=== PATIENT | female | born 1990 | race Hispanic/Latino ===

== ENCOUNTER 2018-12-11 18:49 | Inpatient (IN) | payer MEDICAID ==
[~2018-12-11] VITALS: Ht 165.1 cm; Wt 82.6 kg
[2018-12-11] MEDS ORDERED: LACTATED RINGERS 1000ML 1,000 ML IV PRN (19:12)
[2018-12-11] MEDS ORDERED: OXYTOCIN-LR 20 UNITS/1000 ML 1,000 ML IV SCH (19:15)
[2018-12-11 19:47] LABS: APPEARANCE,URINE Clear (CLEAR); BILIRUBIN,URINE Negative (NEGATIVE); COLOR,URINE Yellow (YELLOW); GLUCOSE, URINE (UA) Negative (NEGATIVE); KETONES,URINE Negative (NEGATIVE); LEUKOCYTE ESTERASE ,URINE Small (NEGATIVE); NITRATE,URINE Negative (NEGATIVE); OCCULT BLOOD,URINE Negative (NEGATIVE); PH,URINE 6.5 (5.0-8.0); PROTEIN,URINE Negative (NEGATIVE)
[2018-12-11 20:36] LABS: BACTERIA,URINE Moderate /HPF (None Seen); SQUAMOUS EPITHELIAL CELL,UR 30-50 /HPF (0-2); YEAST,URINE BUDDING Moderate /HPF (None Seen)
[2018-12-11 20:37] LABS: RBC,URINE 0-1 /HPF (0-1)
[2018-12-11] MEDS ORDERED: PREN1TAB80 PO (21:00)
[2018-12-11 21:01] VITALS: BP 114/73
[2018-12-11 22:03] LABS: HEMATOCRIT 36.2 % (36-48); MEAN CORPUSCULAR HEMOGLOBIN 32.6 pg (27.0-33.0); MEAN CORPUSCULAR HGB CONC 35.1 g/dL (32.0-36.0); PLATELET COUNT (AUTO) 143 K/uL (130-400); RED BLOOD CELL COUNT(AUTO) 3.89 MIL/uL (4.00-5.50); RED CELL DISTRIBUTION WIDTH 13.6 % (11.0-15.5)
[2018-12-12] MEDS: OXYTOCIN-LR 20 UNITS/1000 ML 1,000 ML IV SCH ×2 (05:30→09:55)
[2018-12-12] MEDS ORDERED: MEPERIDINE-PF 50 MG/ML SYG ONE (07:36)
[2018-12-12] MEDS ORDERED: PROMETHAZINE HCL 25 MG/ML 1ML AMPULE IM SCH (07:45)
[2018-12-12] MEDS ORDERED: MEPERIDINE-PF 50 MG/ML SYG IVP SCH (07:45)
[2018-12-12] MEDS ORDERED: MEASLES/MUMPS/RUBELLA VACCINE, LIVE 0.5 ML/VIAL SQ PRN (09:15)
[2018-12-12] MEDS ORDERED: ACETAMINOPHEN-CODEINE 300/30MG TAB PO PRN (09:15)
[2018-12-12] MEDS ORDERED: ACETAMINOPHEN 325 MG TAB PO PRN (09:15)
[2018-12-12] MEDS ORDERED: DIPH,PERTUSS(ACELL),TET VAC/PF 0.5 ML VIAL IM PRN (09:15)
[2018-12-12] MEDS ORDERED: LANOLIN 30GM OINTMENT TP PRN (09:15)
[2018-12-12] MEDS ORDERED: BENZOCAINE/LANOLIN/ALOE VERA 60 ML AEROSOL TP PRN (09:15)
[2018-12-12] MEDS ORDERED: OXYTOCIN-LR 20 UNITS/1000 ML 1,000 ML IV SCH (09:15)
[2018-12-12] MEDS ORDERED: WITCH HAZEL 1 PAD TP PRN (09:15)
[2018-12-12 11:22] VITALS: BP 116/70
[2018-12-12 16:32] VITALS: BP 122/69
[2018-12-12 19:16] VITALS: BP 104/72
[2018-12-12] MEDS: DOCUSATE SODIUM 100 MG CAP PO SCH (20:43)
[2018-12-12] MEDS: IBUPROFEN 600 MG TABLET PO PRN (20:46)
[2018-12-12 23:16] VITALS: BP 99/52
[2018-12-13 03:01] VITALS: BP 103/54
[2018-12-13] MEDS: IBUPROFEN 600 MG TABLET PO PRN ×3 (04:06→19:39)
[2018-12-13 05:38] LABS: HEMATOCRIT 31.1 % (36-48); MEAN CORPUSCULAR HGB CONC 34.9 g/dL (32.0-36.0); MEAN CORPUSCULAR VOLUME 94.4 fL (79-99); PLATELET COUNT (AUTO) 134 K/uL (130-400); RED CELL DISTRIBUTION WIDTH 13.5 % (11.0-15.5); WHITE BLOOD COUNT (AUTO) 12.7 K/uL (4.8-10.8)
[2018-12-13 07:52] VITALS: BP 108/72
[2018-12-13] MEDS: DOCUSATE SODIUM 100 MG CAP PO SCH ×2 (09:35→19:38)
[2018-12-13 10:12] LABS: HEPATITIS Bs ANTIGEN SCREEN P Negative (Negative)
[2018-12-13 11:51] VITALS: BP 94/58
--- NOTE | 2018-12-13 12:57 | NUR ---
+UDS 06/26/18 Sw met with pt who lives with her parents ( mom -Chloe michael [phone]), pt's BF Jefferson Bermudez (21), 02/14/97,and her 8yro daughter from a previous relationship. This is first child for couple, son, Jefferson Bermudez. Pt reports she has Medicaid, WIC, Food Stamp and child support assistance. BF works at [employer], pt unemployed. Couple has basic items for baby and a car seat. Dr Jordan at [facility] will follow baby at ri. Pt reports good family support. Pt admits to recreational use of THC prior to confirmation of , denies any use after confirmation. States she last used right before she found out she was and was dirty at first OB appt. No UDS done at delivery on pt or baby. Pt denies need for substance abuse resources, referral or intervention at this time. Pt denies any hx of abuse, domestic violence, mental health, issues. pt has hx with CPS and or arrest. NATALIE verified with local CPS office, last CPS case was in 2010.
[2018-12-13 16:10] VITALS: BP 120/59
[2018-12-13 19:14] VITALS: BP 107/78
[2018-12-13 23:11] VITALS: BP 108/61
[2018-12-14 03:05] VITALS: BP 109/70
[2018-12-14 07:59] VITALS: BP 104/60
[2018-12-14] MEDS: DOCUSATE SODIUM 100 MG CAP PO SCH (09:11)
[2018-12-14] MEDS: IBUPROFEN 600 MG TABLET PO PRN (09:12)
[2018-12-14] MEDS ORDERED: DIPH,PERTUSS(ACELL),TET VAC/PF 0.5 ML VIAL IM ONE (10:00)
--- NOTE | 2018-12-14 11:00 | NUR ---
PATIENT GIVEN DISCHARGE INSTRUCTIONS AND WAS INSTRUCTED TO TAKE MOTRIN OVER THE COUNTER INDICATED ON VIAL FOR PAIN. PATIENT INDICATED WILL BE PUMPING BREAST AND FEEDING BABY. DENIES PAIN AT THIS TIME BUT DOES STATE HAVING SORE NIPPLES.
[2018-12-14 11:31] VITALS: BP 118/71
--- NOTE | 2018-12-14 14:00 | NUR ---
PATIENT WENT TO VISIT BABY IN NURSERY AND LEFT AT 1400 FOR HOME. PATIENT WAS DISCHARGED TO HER MOTHER IN STABLE CONDITION AND WAS ACCOMPANED BY HER SIGNIFICANT OTHER.
== END 2018-12-14 14:00 | disposition home or self-care (01) | DRG 560 ==
LOC: LDH 18:49 → WSH 12-12 11:12
PROVIDERS: ADMIT Obstetrics & Gynecology; ATTEND Obstetrics & Gynecology
PROC: 10E0XZZ Delivery of Products of Conception, External Approach (ICD-10-PCS; principal; 2018-12-12)
PROC: 10907ZC Drainage of Amniotic Fluid, Therapeutic from Products of Conception, Via Natural or Artificial Opening (ICD-10-PCS; 2018-12-12)
PROC: 3E033VJ Introduction of Other Hormone into Peripheral Vein, Percutaneous Approach (ICD-10-PCS; 2018-12-12)
PROC: 3E0234Z Introduction of Serum, Toxoid and Vaccine into Muscle, Percutaneous Approach (ICD-10-PCS; 2018-12-14)
DX: O69.1XX0 Labor and delivery complicated by cord around neck, with compression, not applicable or unspecified (principal); Z37.0 Single live birth; O66.0 Obstructed labor due to shoulder dystocia; Z23 Encounter for immunization; Z3A.39 39 weeks gestation of pregnancy
CPT/HCPCS: 36415; 81001; 85027; 86592; 86850; 86900; 86901; 87340; 90715; A4351; G0378; J2175; J2590

== ENCOUNTER 2019-10-29 21:14 | Emergency (ER) | payer MEDICAID, OTHER ==
[~2019-10-29 21:14] MED LIST: PREN1TAB80 PO
[2019-10-29 21:43] LABS: APPEARANCE,URINE Cloudy (CLEAR); BILIRUBIN,URINE Negative (NEGATIVE); COLOR,URINE Yellow (YELLOW); GLUCOSE, URINE (UA) Negative (NEGATIVE); KETONES,URINE Negative (NEGATIVE); LEUKOCYTE ESTERASE ,URINE Small (NEGATIVE); NITRATE,URINE Negative (NEGATIVE); OCCULT BLOOD,URINE Negative (NEGATIVE); PROTEIN,URINE Negative (NEGATIVE)
[2019-10-29 21:51] LABS: HCG,QUAL RESULT NEGATIVE (NEGATIVE)
[2019-10-29 21:59] LABS: RBC,URINE 0-1 /HPF (0-1)
[2019-10-29 22:00] LABS: BACTERIA,URINE Few /HPF (None Seen); MUCUS,URINE Few LPF (None Seen); SQUAMOUS EPITHELIAL CELL,UR Moderate /HPF (0-2)
[2019-10-29] MEDS ORDERED: LIDOCAINE HCL-MPF 1% 2ML VIAL ONE (23:24)
[2019-10-29] MEDS ORDERED: IBUPROFEN 600 MG TABLET ONE (23:24)
[2019-10-29] MEDS ORDERED: CEFTRIAXONE SODIUM 1 GM ONE (23:24)
== END 2019-10-29 23:56 | disposition home or self-care (01) ==
LOC: EDH 21:14
DX: N39.0 Urinary tract infection, site not specified (principal); M54.5 Low back pain
CPT/HCPCS: 72100; 81001; 81025; 87088; 96372; 99284; J0696; J3490

== ENCOUNTER 2023-04-26 23:40 | Emergency (ER) | payer BC, OTHER ==
[~2023-04-26] VITALS: Ht 165.1 cm; Wt 55.8 kg
[2023-04-27 01:15] VITALS: BP 110/62; PULSE 64; RESP 16; O2SAT 100
== END 2023-04-27 01:15 | disposition home or self-care (01) ==
LOC: EDH 23:40
DX: S01.91XD Laceration without foreign body of unspecified part of head, subsequent encounter (principal); Z53.21 Procedure and treatment not carried out due to patient leaving prior to being seen by health care provider; X58.XXXD Exposure to other specified factors, subsequent encounter